=== PATIENT | female | born 1950 | race Caucasian/White ===

== ENCOUNTER 2017-06-26 16:26 | Emergency (ER) | payer OTHER ==
[~2017-06-26] VITALS: Ht 157.5 cm; Wt 68.0 kg
[2017-06-26 16:33] VITALS: Ht 157.5 cm; Wt 68.0 kg
[2017-06-26] MEDS ORDERED: ONDANSETRON 4 MG INJ IV STA (18:11)
[2017-06-26] MEDS ORDERED: SOD CHLORIDE 0.9% 1,000 ML IV STA (18:11)
[2017-06-26] MEDS ORDERED: PANTOPRAZOLE 40 MG INJ IV ONE (18:30)
[2017-06-26 18:34] LABS: BASOPHILS % 0.6 % (0.0-2.0); EOSINOPHILS # 0.1 10^3/ul (0.0-0.5); EOSINOPHILS % 1.7 % (0.0-7.0); HEMATOCRIT 36.3 % (37.0-47.0); HEMOGLOBIN 12.2 g/dl (12.0-16.0); LYMPHOCYTES # 2.4 10^3/ul (0.8-2.9); LYMPHOCYTES % 34.2 % (15.0-51.0); MEAN CORPUSCULAR HEMOGLOBIN 28.9 pg (29.0-33.0); MEAN CORPUSCULAR HGB CONC 33.6 g/dl (32.0-37.0); MEAN PLATELET VOLUME 9.2 fl (7.4-10.4); MONOCYTE # 0.7 10^3/ul (0.3-0.9); MONOCYTES % 10.3 % (0.0-11.0); NEUTROPHILS % 53.1 % (39.0-77.0); PLATELET COUNT 347 10^3/UL (140-415); RED BLOOD COUNT 4.22 10^6/ul (4.20-5.40); RED CELL DISTRIBUTION WIDTH 15.3 % (11.5-14.5); WHITE BLOOD COUNT 6.9 10^3/ul (4.8-10.8)
[2017-06-26] MEDS ORDERED: AMLO5TAB4 PO (18:53)
[2017-06-26] MEDS ORDERED: LOSA100T7 PO (18:53)
[2017-06-26] MEDS ORDERED: FLUT16SP17 NASAL (18:54)
[2017-06-26] MEDS ORDERED: SODI1PAC44 NASAL (18:57)
[2017-06-26] MEDS ORDERED: CHOL200073 PO (18:58)
[2017-06-26] MEDS ORDERED: TRAM-40 PO (18:59)
[2017-06-26 19:00] VITALS: BP 132/84; PULSE 73; RESP 17
[2017-06-26 19:00] LABS: ALBUMIN 4.4 g/dl (3.3-4.9); ALBUMIN/GLOBULIN RATIO 1.22; BILIRUBIN,INDIRECT 0.1 mg/dl (0-1.1); BILIRUBIN,TOTAL 0.1 mg/dl (0.2-1.3); CALCIUM 9.2 mg/dl (8.4-10.2); CREATININE 0.68 mg/dl (0.44-1.00); POTASSIUM 3.9 mmol/L (3.5-5.1)
[2017-06-26] MEDS ORDERED: ACETAMINOPHEN 325 MG TAB PO ONE (19:00)
[2017-06-26] MEDS ORDERED: DULO30CA47 PO (19:01)
[2017-06-26] MEDS ORDERED: OMEP20CA16 PO (19:01)
[2017-06-26] MEDS ORDERED: LEVO50TA74 PO (19:02)
[2017-06-26] MEDS ORDERED: CYCL5TAB PO (19:04)
[2017-06-26] MEDS ORDERED: [UNRECOGNIZED DRUG - CODE] PO (19:05)
[2017-06-26] MEDS ORDERED: MELO-110 PO (19:05)
[2017-06-26] MEDS ORDERED: PANT40TA3 PO (19:15)
--- NOTE | 2017-06-26 19:15 | ERD ---
ER Documentation Chief Complaint Date/Time DATE: 06/26/17 TIME: 19:13 Chief Complaint RB X 3 TODAY HPI This is a 66-year-old female who presents to the emergency room for evaluation of rectal bleeding for the past 24 hours. This patient does state that she noted bright red blood after a bowel movement today. She states that she is scheduled for an endoscopy and colonoscopy next Friday, July 02. The patient denies being on any blood thinners at this time. She denies any abdominal pain associated with this. She denies any chest pain or palpitations or weakness associated with this either ROS All systems reviewed and are negative except as per history of present illness. Medications Home Meds Reported Medications Docusate Calcium (Arpan-Tin) 240 Mg Capsule, 240 MG PO BID, CAP 06/26/17 Meloxicam* (Mobic*) 15 Mg Tablet, 15 MG PO DAILY, #30 TAB 06/26/17 Cyclobenzaprine Hcl* (Cyclobenzaprine Hcl*) 5 Mg Tablet, 5 MG PO QHS, #60 TAB 06/26/17 Levothyroxine Sodium* (Levothyroxine Sodium*) 50 Mcg Tablet, 50 MCG PO BEFORE BREAKFAST, #30 TAB 06/26/17 Omeprazole* (Omeprazole*) 20 Mg Capsule.dr, 20 MG PO DAILY, #30 CAP 06/26/17 Duloxetine Hcl* (Duloxetine Hcl*) 30 Mg Capsule.dr, 30 MG PO DAILY, #30 CAP 06/26/17 Tramadol Hcl* (Ultram*) 50 Mg Tablet, 50 MG PO BID Y for PAIN, TAB 06/26/17 Cholecalciferol (Vitamin D3) (VITAMIN D-3) 2,000 Unit Capsule, 2000 UNIT PO DAILY, CAP 06/26/17 Sodium Chloride/Sodium Bicarb (SINUS WASH NETI POT KIT) 1 Each Packet, 1 APPLIC NASAL DAILY Y for NEEDED, KIT 06/26/17 Fluticasone Propionate* (Fluticasone Propionate* Nasal) 50 Mcg/Filion - 16 Gm Filion.susp, 1 SPRAY NASAL DAILY, #1 BOTTLE TO EACH NOSTRIL 06/26/17 Amlodipine Besylate* (Norvasc*) 5 Mg Tablet, 5 MG PO DAILY, TAB 06/26/17 Losartan Potassium* (Losartan Potassium*) 100 Mg Tablet, 100 MG PO DAILY, TAB 06/26/17 Allergies Allergies: Coded Allergies: No Known Allergy (Unverified , 06/26/17) PMhx/Soc History of Surgery: Yes (L BREAST LUMPECTOMY AND LYMPHECTOMY) Anesthesia Reaction: No Hx Neurological Disorder: No Hx Respiratory Disorders: No Hx Cardiac Disorders: Yes (HTN) Hx Psychiatric Problems: No Hx Miscellaneous Medical Probl: Yes (BREAST CA) Hx Alcohol Use: Yes (OCCASSIONALLY) Hx Substance Use: No Hx Tobacco Use: No Smoking Status: Never smoker Physical Exam Vitals Vital Signs Date Time Temp Pulse Resp B/P Pulse Ox O2 Delivery O2 Flow Rate FiO2 06/26/17 16:33 98.7 107 18 129/63 99 Physical Exam INITIAL VITAL SIGNS: Reviewed by me GENERAL: The patient is well developed and appropriate for usual state of health in no apparent distress HEENT: Pupils equal, round, and reactive to light. EOMI. There is no scleral icterus. NECK: C-spine is soft and supple, there is no meningismus. There is no cervical lymphadenopathy. LUNGS: Clear to auscultation bilaterally. There are no rales, wheezes or rhonchi. HEART: Regular rate and rhythm, no murmurs, clicks, rubs or gallops. ABDOMEN: Soft, non-tender, non-distended. There are bowel sounds in all four quadrants. No rebound or guarding. EXTREMITIES: There is no peripheral cyanosis or edema. No focal swelling or erythema. NEUROLOGICAL: The patient moves all four extremities with 5/5 strength. Cranial nerves II - XII are intact. Normal gait. Alert and oriented SKIN: There is no apparent rash or petechiae. HEME/LYMPHATIC: There is no evidence of excessive bruising or lymphedema. PSYCHIATRIC: The patient does not appear anxious or depressed. Result Diagram: 06/26/17181906/26/171819 Results 24 hrs Laboratory Tests Test 06/26/17 18:20 White Blood Count 6.910^3/ul Red Blood Count 4.2210^6/ul Hemoglobin 12.2g/dl Hematocrit 36.3% Mean Corpuscular Volume 86.0fl Mean Corpuscular Hemoglobin 28.9pg Mean Corpuscular Hemoglobin Concent 33.6g/dl Red Cell Distribution Width 15.3% Platelet Count 63604^3/UL Mean Platelet Volume 9.2fl Neutrophils % 53.1% Lymphocytes % 34.2% Monocytes % 10.3% Eosinophils % 1.7% Basophils % 0.6% Nucleated Red Blood Cells % 0.0/100WBC Neutrophils # (Manual) 410^3/ul Lymphocytes # 2.410^3/ul Monocytes # 0.710^3/ul Eosinophils # 0.110^3/ul Basophils # 0.010^3/ul Nucleated Red Blood Cells # 0.010^3/ul Sodium Level 138mmol/L Potassium Level 3.9mmol/L Chloride Level 97mmol/L Carbon Dioxide Level 25mmol/L Anion Gap 20 Blood Urea Nitrogen 12mg/dl Creatinine 0.68mg/dl Glucose Level 102mg/dl Calcium Level 9.2mg/dl Total Bilirubin 0.1mg/dl Direct Bilirubin 0.00mg/dl Indirect Bilirubin 0.1mg/dl Aspartate Amino Transf (AST/SGOT) 28IU/L Alanine Aminotransferase (ALT/SGPT) 30IU/L Alkaline Phosphatase 70IU/L Total Protein 8.0g/dl Albumin 4.4g/dl Globulin 3.60g/dl Albumin/Globulin Ratio 1.22 Lipase 143U/L Current Medications Medications (Trade) Dose Ordered Sig/Robbi Route PRN Reason Start Time Stop Time Status Last Admin Dose Admin Sodium Chloride (NS) 1,000 ml @ 1,000 mls/hr Q1H STAT IV 06/26/17 18:11 06/26/17 19:10 DC 06/26/17 18:28 Ondansetron HCl (Zofran Inj) 4 mg ONCE STAT IV 06/26/17 18:11 06/26/17 18:13 DC 06/26/17 18:28 Pantoprazole (Protonix Iv) 40 mg ONCE ONCE IV 06/26/17 18:30 06/26/17 18:31 DC 06/26/17 18:28 Acetaminophen (Tylenol Tab) 650 mg ONCE ONCE PO 06/26/17 19:00 06/26/17 19:01 DC 06/26/17 18:37 Procedures/MDM This 66-year-old female presents to the ER for evaluation of bright red blood per rectum for one days duration. When I evaluated this patient she was hemodynamically stable, nontoxic appearing. The patient is scheduled for an endoscopy and colonoscopy next week. I have reviewed the patient's medical record and medication list and I noted that she is on meloxicam. I advised her that meloxicam can cause cause irritation of the stomach and can lead to bleeding. Patient the patient family member were unaware and they stated they will stop the medication. The patient was given Protonix in the ER and will be discharged home with a prescription for Protonix at this time per Departure Diagnosis: Primary Impression: Rectal bleed Condition: Stable GEORGES QUILES DO Jun 26, 2017 19:15
== END 2017-06-26 19:31 | disposition home or self-care (01) ==
LOC: E/R 16:26
DX: K62.5 Hemorrhage of anus and rectum (principal); Z85.3 Personal history of malignant neoplasm of breast
CPT/HCPCS: 36415; 80053; 83690; 85025; 96374; 96375; C9113; J2405; J7030; Z7502; Z7610

== ENCOUNTER 2018-12-06 14:14 | Emergency (ER) | payer OTHER ==
[~2018-12-06] VITALS: Ht 167.6 cm; Wt 63.3 kg
[~2018-12-06 14:14] MED LIST: AMLO5TAB4 PO; CHOL200073 PO; CYCL5TAB PO; DULO30CA47 PO; FLUT16SP17 NASAL; LEVO50TA7 PO; LOSA100T15 PO; MELO15TA30 PO; OMEP20CA16 PO; PANT40TA3 PO; SODI1PAC44 NASAL; TRAM50TA PO; [UNRECOGNIZED DRUG - CODE] PO
[2018-12-06 14:26] VITALS: BP 142/77; PULSE 83; RESP 20; Ht 167.6 cm; Wt 63.3 kg
--- NOTE | 2018-12-06 16:53 | ERD ---
ER Documentation Chief Complaint Chief Complaint Complains of bloody stool since this am HPI This is a 67-year-old female with a past medical history of hypertension, hypothyroidism, GERD who is presenting with persistent dysuria and a reported episode of bloody stooling this morning. The patient reports urinary frequency and urgency in addition to abdominal cramping with urination. The patient has not noticed blood in her urine, but she does note that there is a significant burning sensation when she pees. Her symptoms are relieved after urinating but recur with her next need to urinate. The patient denies constipation or diarrhea. She notes that there is some streaking of blood in her stool this morning, but she has not had any dark or black stools. Currently, the patient feels well. She has no abdominal pain. She has not had any fever or chills. The patient has had no headache or vision changes. The patient does not endorse neck or back pain. The patient denies lightheadedness or dizziness. The patient has had no chest pain or trouble breathing. The patient denies nausea or vomiting. The patient has had no focal deficits. The patient has had no weakness or numbness or tingling to the face or extremities. ROS All systems reviewed and are negative except as per history of present illness. Medications Home Meds Active Scripts Pantoprazole* (Protonix*) 40 Mg Tablet., 40 MG PO DAILY, #20 TAB Prov:TIM QUILESMERLYN DUMONT 06/26/17 Reported Medications Docusate Calcium (Arpan-Tin) 240 Mg Capsule, 240 MG PO BID, CAP 06/26/17 Meloxicam* (Mobic*) 15 Mg Tablet, 15 MG PO DAILY, #30 TAB 06/26/17 Cyclobenzaprine Hcl* (Cyclobenzaprine Hcl*) 5 Mg Tablet, 5 MG PO QHS, #60 TAB 06/26/17 Levothyroxine Sodium* (Levothyroxine Sodium*) 50 Mcg Tablet, 50 MCG PO BEFORE BREAKFAST, #30 TAB 06/26/17 Omeprazole* (Omeprazole*) 20 Mg Capsule.dr, 20 MG PO DAILY, #30 CAP 06/26/17 Duloxetine Hcl* (Duloxetine Hcl*) 30 Mg Capsule.dr, 30 MG PO DAILY, #30 CAP 06/26/17 Tramadol Hcl* (Ultram*) 50 Mg Tablet, 50 MG PO BID PRN for PAIN, TAB 06/26/17 Cholecalciferol (Vitamin D3) (VITAMIN D-3) 2,000 Unit Capsule, 2000 UNIT PO DAILY, CAP 06/26/17 Sodium Chloride/Sodium Bicarb (SINUS WASH NETI POT KIT) 1 Each Packet, 1 APPLIC NASAL DAILY PRN for NEEDED, KIT 06/26/17 Fluticasone Propionate* (Fluticasone Propionate* Nasal) 50 Mcg/[place] - 16 Gm [place].susp, 1 SPRAY NASAL DAILY, #1 BOTTLE TO EACH NOSTRIL 06/26/17 Amlodipine Besylate* (Norvasc*) 5 Mg Tablet, 5 MG PO DAILY, TAB 06/26/17 Losartan Potassium* (Losartan Potassium*) 100 Mg Tablet, 100 MG PO DAILY, TAB 06/26/17 Allergies Allergies: Coded Allergies: No Known Allergy (Unverified , 06/26/17) PMhx/Soc History of Surgery: Yes (L BREAST LUMPECTOMY AND LYMPHECTOMY) Anesthesia Reaction: No Hx Neurological Disorder: No Hx Respiratory Disorders: No Hx Cardiac Disorders: Yes (HTN) Hx Psychiatric Problems: No Hx Miscellaneous Medical Probl: Yes (BREAST CA, hypothyroidism) Hx Alcohol Use: Yes (OCCASSIONALLY) Hx Substance Use: No Hx Tobacco Use: No Smoking Status: Never smoker FmHx Family History: No diabetes Physical Exam Vitals Vital Signs Date Temp Pulse Resp B/P (MAP) Pulse Ox O2 O2 Flow FiO2 Time Delivery Rate 12/06/18 82 18 130/66 99 Room Air 15:30 (87) 12/06/18 97.8 83 20 142/77 96 14:26 (98) Physical Exam Const: No apparent distress, well-developed, well-nourished Head: Normocephalic, Atraumatic Eyes: Normal Conjunctiva. Extraocular movements intact. Pupils equal, round and reactive to light ENT: Normal External Ears, Nose and Mouth. Neck: Full range of motion. No meningismus. Resp: Clear to auscultation bilaterally, No wheezes, rales or rhonchi Cardio: Regular rate and rhythm. No murmurs, rubs or gallops Abd: Soft, non tender, non distended. Normal bowel sounds Rectal: Carriage Feeder present at all times. External nonthrombosed and nonbleed ing nontender hemorrhoids are present. No internal hemorrhoids. Fecal occult blood test negative. Skin: No petechiae or rashes Back: No midline tenderness. No CVA tenderness Ext: No cyanosis, or edema Neur: Awake and alert, oriented 4. Cranial nerves intact. No facial droop. Normal strength, sensation and coordination. Psych: Normal Mood and Affect Result Diagram: 12/06/18 1529 12/06/18 1529 Results 24 hrs Laboratory Tests Test 12/06/18 15:29 12/06/18 16:23 White Blood Count 8.1 10^3/ul Red Blood Count 4.47 10^6/ul Hemoglobin 13.9 g/dl Hematocrit 40.4 % Mean Corpuscular Volume 90.4 fl Mean Corpuscular Hemoglobin 31.1 pg Mean Corpuscular Hemoglobin Concent 34.4 g/dl Red Cell Distribution Width 13.3 % Platelet Count 324 10^3/UL Mean Platelet Volume 8.8 fl Immature Granulocytes % 0.400 % Neutrophils % 59.0 % Lymphocytes % 30.3 % Monocytes % 8.8 % Eosinophils % 1.1 % Basophils % 0.4 % Nucleated Red Blood Cells % 0.0 /100WBC Immature Granulocytes # 0.030 10^3/ul Neutrophils # 4.8 10^3/ul Lymphocytes # 2.5 10^3/ul Monocytes # 0.7 10^3/ul Eosinophils # 0.1 10^3/ul Basophils # 0.0 10^3/ul Nucleated Red Blood Cells # 0.0 10^3/ul Prothrombin Time 11.9 Sec Prothrombin Time Ratio 0.9 INR International Normalized Ratio 0.87 Activated Partial Thromboplast Time 28.9 Sec Urine Color YELLOW Urine Clarity SLIGHTLY CLOUDY Urine pH 7.0 Urine Specific Frederic 1.013 Urine Ketones NEGATIVE mg/dL Urine Nitrite NEGATIVE mg/dL Urine Bilirubin NEGATIVE mg/dL Urine Urobilinogen NEGATIVE mg/dL Urine Leukocyte Esterase 3+ Eloise/ul Urine Microscopic RBC 5 /HPF Urine Microscopic WBC 138 /HPF Urine Bacteria FEW /HPF Urine Hemoglobin NEGATIVE mg/dL Urine Glucose NEGATIVE mg/dL Urine Total Protein NEGATIVE mg/dl Sodium Level 134 mmol/L Potassium Level 4.0 mmol/L Chloride Level 92 mmol/L Carbon Dioxide Level 29 mmol/L Anion Gap 13 Blood Urea Nitrogen 18 mg/dl Creatinine 0.76 mg/dl Est Glomerular Filtrat Rate mL/min > 60 mL/min Glucose Level 99 mg/dl Calcium Level 9.7 mg/dl Total Bilirubin 0.2 mg/dl Direct Bilirubin 0.00 mg/dl Indirect Bilirubin 0.2 mg/dl Aspartate Amino Transf (AST/SGOT) 25 IU/L Alanine Aminotransferase (ALT/SGPT) 11 IU/L Alkaline Phosphatase 83 IU/L Total Protein 8.5 g/dl Albumin 4.8 g/dl Globulin 3.70 g/dl Albumin/Globulin Ratio 1.29 Stool Occult Blood NEGATIVE Current Medications Medications Dose Sig/Robbi Start Time Status Last (Trade) Ordered Route PRN Stop Time Admin Dose Reason Admin Ceftriaxone 1 gm ONCE ONCE 12/06/18 UNV Sodium IM 17:00 (Rocephin) 12/06/18 17:01 Sodium 1,000 ml @ Q1H ONCE 12/06/18 UNV Chloride 1,000 mls/hr IV 17:00 12/06/18 17:59 Procedures/MDM MDM The patient's presentation warrants further investigation. Previous medical records, if available, were reviewed. LABS The patient's laboratory testing was obtained and reviewed. No emergent tr eatment was required unless described below. CBC: No E/o of systemic infection or severe anemia or thrombocytopenia CMP: No E/o severe acidosis or alkalosis or renal failure or liver disease or diabetic ketoacidosis PT/INR: No E/o significant coagulopathy Urine: E/o acute infection with hematuria FOBT: Negative EKG EKG read by me: Rate/Rhythm: Regular rate and rhythm at a rate of 78 bpm Intervals: Normal [place]: Normal Impression: No evidence of acute ischemia or arrhythmia TREATMENT/DISPOSITION The patient presents with waxing and waning suprapubic abdominal cramping and pain, associated with urinary burning. The patient's urinalysis is consistent with UTI with hematuria. The patient did also endorse an episode of rectal bleeding this morning. The rectal exam revealed external nonbleeding nonthrombosed hemorrhoids but no internal hemorrhoids. The patient's fecal occult blood test is negative. The patient reports suprapubic abdominal pain at home, but she has no tenderness is on exam currently. The patient does not have any evidence of peritonitis. The patient does not have clinical symptoms concerning for mesenteric ischemia or ischemic colitis. The patient does not have right upper quadrant tenderness, and I have low suspicion for gallstones, cholecystitis or biliary colic. The patient does not have any epigastric pain. I have low suspicion for gastritis, PUD or GERD. The patient does not have left upper quadrant tenderness. I have low suspicion for pancreatitis. The patient does not have any right lower quadrant tenderness, or periumbilical tenderness. I have low suspicion for appendicitis. The patient does not have any left lower quadrant tenderness, and I have low suspicion for diverticulosis or diverticulitis. The patient does not have any flank tenderness. The patient does not have gross hematuria. I have decreased suspicion for nephrolithiasis or renal colic. The patient does not have any palpable pulsatile mass or severe abdominal pain radiating to the back. I have low suspicion for aortic aneurysm, dissection or rupture. The patient was treated with IV fluids and Rocephin in the emergency department. She was previously treated with Bactrim and Macrobid which have not stopped her symptoms. She will be given a course of Keflex. Upon reevaluation of the patient, symptoms have improved. No emergent diagnoses were identified. At this time, I feel that the patient stable for discharge. The patient was instructed to follow-up with a primary care physician in 1-3 days. The patient will be given strict precautions with which to return to the emergency department. Prescriptions: Keflex The patient's blood pressure was elevated at greater than 120/80 while in the emergency department. The patient was otherwise stable with no evidence of hypertensive urgency or emergency. The patient does not require admission for blood pressure control. I have discussed with the patient the risks of hypertension. I have instructed the patient to return to the ER for any new or worsening symptoms including chest pain, shortness of breath, headache, blurred vision, confusion, nausea, vomiting or LOC. I have advised the patient to follow up with the primary care physician for outpatient monitoring and treatment for hypertension in 1-3 days. Disclaimer: Inadvertent spelling and grammatical errors are likely due to EHR/dictation software use and do not reflect on the overall quality of patient care. Note that the electronic time recorded on this note does not necessarily reflect the actual time of the patient encounter. Departure Diagnosis: Primary Impression: Urinary tract infection Urinary tract infection type: acute cystitis Hematuria presence: with hematuria Qualified Codes: N30.01 - Acute cystitis with hematuria Additional Impression: Suprapubic pain Condition: SEAMUS Cabrera MD Dec 06, 2018 16:53
[2018-12-06] MEDS ORDERED: CEPH-443 PO (16:54)
[2018-12-06] MEDS ORDERED: CEFTRIAXONE 1 GM INJ IM ONE (17:00)
[2018-12-06] MEDS ORDERED: CEFTRIAXONE 1 GM/50 ML (PMX) 50 ML IVPB ONE (17:00)
[2018-12-06] MEDS ORDERED: SOD CHLORIDE 0.9% 1,000 ML IV ONE (17:00)
== END 2018-12-06 17:38 | disposition home or self-care (01) ==
LOC: E/R 14:14
DX: N30.01 Acute cystitis with hematuria (principal); I10 Essential (primary) hypertension; E03.9 Hypothyroidism, unspecified; R10.9 Unspecified abdominal pain; Z85.3 Personal history of malignant neoplasm of breast
CPT/HCPCS: 36415; 80053; 81001; 82270; 85025; 85610; 85730; 86850; 86900; 86901; 93005; 96374; J0696; J7030; Z7502; Z7610